=== PATIENT | female | born 1965 | race Caucasian/White ===

== ENCOUNTER → 2021-05-16 | Day surgery (SDC) | payer OTHER ==
[~2021-05-16] VITALS: Ht 157.5 cm; Wt 74.4 kg
[~2021-05-16] MED LIST: LEVOTHYROXINE0.5 GM PO; NORCO 5-325 TA1 EACH PO; ONDANSETRON ODT8 MG PO; PHENTERMINE HCL30 MG PO; VITAMIN D21250 MCG PO
[2021-05-16 10:23] LABS: HGB 14.5 g/dl (12.5-16.0); MCH 29.5 pg (25.0-31.0); MCV 89.4 fL (78.0-100.0); MPV 10.5 fL (6.0-9.5); RBC 4.92 M/uL (4.20-5.40); RDW 13.4 % (11.5-14.0); WBC 7.6 K/uL (4.0-10.5)
[2021-05-16 10:42] LABS: ALBUMIN 3.8 g/dL (3.4-5.0); BILIRUBIN - TOTAL 0.5 mg/dL (0.2-1.0); BUN/CREAT RATIO (CALC) 12.1 RATIO; CREATININE 0.91 mg/dL (0.51-0.95); GLOBULIN (CALCULATION) 3.4 g/dL; POTASSIUM 3.9 mmol/L (3.5-5.1); TOTAL PROTEIN 7.2 g/dL (6.4-8.2)
== END | disposition home or self-care (01) ==
LOC: FAS 05-09 09:45
PROVIDERS: Surgery
DX: K64.1 Second degree hemorrhoids (principal); Z88.0 Allergy status to penicillin; E03.9 Hypothyroidism, unspecified
CPT/HCPCS: 36415; 80053; J1100; J2704; J7120